=== PATIENT | female | born 1970 | race Caucasian/White ===

== ENCOUNTER → 2017-03-18 | Outpatient (CLI) | payer OTHER, BC ==
[2017-03-18 13:01] LABS: BASOPHILS # (AUTO) 0.08 10*3/UL; BASOPHILS % (AUTO) 0.8 % (0-1); EOSINOPHILS # (AUTO) 0.54 10*3/UL; EOSINOPHILS % (AUTO) 5.2 % (0-8); HEMATOCRIT 46.1 % (37.0-47.0); LYMPHOCYTES # (AUTO) 2.63 10*3/uL; MEAN CORPUSCULAR HEMOGLOBIN 29.5 PG (27-31); MEAN CORPUSCULAR HGB CONC 32.5 g/dL (33-37); MEAN CORPUSCULAR VOLUME 90.7 FL (81-99); MEAN PLATELET VOLUME 10.9 FL (7.4-12.2); MONOCYTES # (AUTO) 0.69 10*3/UL (0.3-0.8); MONOCYTES % (AUTO) 6.6 % (5-15); NEUTROPHILS # (AUTO) 6.27 10*3/UL; NEUTROPHILS % (AUTO) 60.2 % (50-80); RED BLOOD COUNT 5.08 10^6/uL (4.20-5.40)
[2017-03-18 13:03] LABS: PLATELET MORPHOLOGY COMMENT NORMAL MORPHOLOGY (NORM); RBC MORPHOLOGY COMMENT NORMAL MORPHOLOGY (NORM); WBC MORPHOLOGY COMMENT NORMAL MORPHOLOGY (NORM)
[2017-03-18 13:17] LABS: BLOOD UREA NITROGEN 9 mg/dL (7-22); BUN/CREATININE RATIO 12.85 (6-20); CALCIUM 8.8 mg/dL (8.7-10.7); CHOL/HDL RATIO 6.18 RATIO (0-4.0); EST GLOMERULAR FILTRATION > 60 (>60 ml/min/1.73m(2)); HDL CHOLESTEROL 33 mg/dL (40-150); SERUM ALBUMIN 3.9 g/dL (3.5-4.8); SERUM CHOLESTEROL 204 mg/dL (120-200)
[2017-03-18 13:18] LABS: HEMOGLOBIN A1C 9.22 % (4.2-6.0)
== END ==
LOC: LAB 12:46
PROVIDERS: ATTEND Internal Medicine
DX: E11.9 Type 2 diabetes mellitus without complications (principal); Z79.4 Long term (current) use of insulin; E78.4 Other hyperlipidemia; D50.9 Iron deficiency anemia, unspecified; E66.01 Morbid (severe) obesity due to excess calories; E03.4 Atrophy of thyroid (acquired); L40.50 Arthropathic psoriasis, unspecified; L73.2 Hidradenitis suppurativa; N92.0 Excessive and frequent menstruation with regular cycle; F17.200 Nicotine dependence, unspecified, uncomplicated
CPT/HCPCS: 36415; 80053; 80061; 82550; 83036; 84443; 85025

== ENCOUNTER 2017-10-17 17:39 | Inpatient (IN) ==
[2017-10-17] MEDS ORDERED: NORMAL SALINE 10 ML SYRINGE FLUSH IVP PRN (18:29)
[2017-10-17] MEDS ORDERED: Sodium Chloride 0.9% 1,000 ML PRIMARY IV ONE (18:29)
[2017-10-17] MEDS ORDERED: MORPHINE SULFATE 2 MG/1 ML ONE (18:55)
[2017-10-17] MEDS ORDERED: MORPHINE SULFATE 2 MG/1 ML IVP ONE (18:59)
[2017-10-17 19:04] LABS: RED BLOOD COUNT 5.02 10^6/uL (4.20-5.40)
[2017-10-17 19:05] LABS: BASOPHILS # (AUTO) 0.07 10*3/UL; BASOPHILS % (AUTO) 0.8 % (0-1); BLOOD UREA NITROGEN 10 mg/dL (7-22); EOSINOPHILS # (AUTO) 0.49 10*3/UL; EOSINOPHILS % (AUTO) 5.7 % (0-8); Hematocrit [HCT] 46.3 % (37.0-47.0); Hemoglobin [HGB] 15.9 g/dL (12.0-16.0); LYMPHOCYTES # (AUTO) 2.21 10*3/uL; MEAN CORPUSCULAR HEMOGLOBIN 31.6 PG (27-31); MEAN CORPUSCULAR HGB CONC 34.3 g/dL (33-37); MEAN CORPUSCULAR VOLUME 92 FL (81-99); MEAN PLATELET VOLUME 9.7 FL (7.4-12.2); MONOCYTES # (AUTO) 0.65 10*3/UL (0.3-0.8); MONOCYTES % (AUTO) 7.6 % (5-15); NEUTROPHILS # (AUTO) 5.18 10*3/UL; NEUTROPHILS % (AUTO) 60.2 % (50-80); RBC MORPHOLOGY COMMENT NORMAL MORPHOLOGY (NORM); WBC MORPHOLOGY COMMENT NORMAL MORPHOLOGY (NORM)
[2017-10-17 19:06] LABS: PLATELET MORPHOLOGY COMMENT SEE COMMENTS (NORM)
--- NOTE | 2017-10-17 20:35 | PDOC ---
HPI - History of Present Illness Date of Service: 10/17/17 Time of Service: 20:00 Chief Complaint: An ulcer that developed on the anterior upper left tian 2 weeks duration with discharge from it History of Present Illness: This is a 47 years old female with medical history significant for history of diabetes on insulin, psoriasis with psoriatic arthropathy, obstructive sleep apnea on CPAP, obesity, history of pseudotumor cerebri, hypothyroidism, history of Hidradenitis suppurativa who developed an ulcer with an eschar on the left lower leg. It started she said the 2 weeks ago, she thought that she had the lesion of hidradenitis that developed on a psoriatic palque also with discharge and drainage from it. The area is painful. No fever. She did notice some red streaking from the area radiating. Because she thought that it' s her usual hidradenitis she thought that it will take its course and go away so she was doing dressing changes. She had an appointment a regular appointment with Dr. England, he looked at the area he put her on antibiotics and did a CT of the leg there was no evidence of abscess collection so he put her on Levaquin. However he called her today because the growth showed MRSA and suggested that she goes to the hospital. She was seen in the ER she had blood test done and she was started on antibiotics with vancomycin and admitted. Past Medical History Medical History: 1. Bilateral PE in 2013. 2. Psoriasis. 3. Diabetes. 4. History of sleep apnea. 5. Obesity. 6. Dyslipidemia. 7. History of pseudotumor cerebri. 8. History of anxiety/depression. 9. History of Hidradenitis suppurativa Surgical History: 1. History of cholecystectomy. 2. History of endometrial ablation Family History: Reviewed an Not Pertinent Pertinent Family History: Apparently her father had MRSA infection and from to her. Past Social History: She smokes, rarely drinks no drugs. Lives in [place]. Tobacco Use: Current Every Day Smoker In the Past 12 Months, Have Used or Abuse Any of the Following Substance: None Alcohol Use: Rarely Medication / Allergies Home Medications: Home Medications Medication Instructions Recorded Confirmed Type Naproxen [Naprosyn] 1 tab PO QD PRN #60 tab 08/03/14 10/17/17 History Ibuprofen [Motrin] 800 mg PO Q6H PRN #40 tab 02/10/15 10/17/17 Rx Blood Sugar Diagnostic [Contour 1 ea QAM #90 strip 07/24/16 10/17/17 Rx Next] Bupropion HCl [Wellbutrin Xl] 1 tab PO DAILY #30 tab 07/24/16 10/17/17 Rx Citalopram Hydrobromide 1 tab PO QAM #30 tab 07/24/16 10/17/17 Rx [Citalopram Hbr] Cyclobenzaprine HCl 1 tab PO TID PRN #60 tab 07/24/16 10/17/17 History Ezetimibe [Zetia] 1 tab PO QD #30 tab 07/24/16 10/17/17 Rx Folic Acid 1 tab PO DAILY #90 tab 07/24/16 10/17/17 Rx Furosemide 1 tab PO DAILY #30 tab 07/24/16 10/17/17 History Potassium Chloride 1 tab PO DAILY #30 tab 07/24/16 10/17/17 History Rosuvastatin Calcium [Crestor] 1 tab PO QHS #30 tab 07/24/16 10/17/17 Rx Silver Sulfadiazine 50 gm TP BID #1 tub 07/24/16 10/17/17 Rx AcetaZOLAMIDE [Diamox] 500 mg PO BID #120 tab 07/30/16 10/17/17 Rx Apixaban [Eliquis] 1 tab PO BID #60 tab 08/31/16 10/17/17 Rx Allopurinol 1 tab PO 3x weekly #30 tab 10/03/16 10/17/17 Rx Insulin Detemir [Levemir Flextouch] 60 unit SQ QHS #3 unit 10/03/16 10/17/17 Rx Levothyroxine Sodium 1 tab PO DAILY #30 tab 10/03/16 10/17/17 Rx Methotrexate Sodium/Pf 25 mg IM WEEKLY #1 bottle 10/03/16 10/17/17 Rx [Methotrexate 1 Gram/40 Ml Vial] [place] Tar [Mg217 Psoriasis] 107 gm TOPICAL DAILY tube 03/18/17 10/17/17 History Metformin HCl 1 tab PO BID #180 tab 03/18/17 10/17/17 Rx oxycodone 10 mg tablet 10 mg PO Q4-6H PRN #30 tab 07/10/17 10/17/17 Rx levofloxacin 750 mg tablet 750 mg PO Q24H 7 Days #7 tab 10/15/17 10/17/17 Rx Allergies/Adverse Reactions: Allergies 3 Allergy/AdvReac Type Severity Reaction Status Date / Time amoxicillin Allergy Mild RASH Verified 10/17/17 17:48 cephalexin [Cephalexin] Allergy Mild RASH Verified 10/17/17 17:48 Egg Derived [Egg/Poultry] Allergy Mild OTHER Verified 10/17/17 17:48 minocycline Allergy Mild RASH Verified 10/17/17 17:48 Penicillins Allergy Mild RASH Verified 10/17/17 17:48 Tetracyclines Allergy Mild OTHER Verified 10/17/17 17:48 tretinoin Allergy Mild RASH Verified 10/17/17 17:48 vitamin A [From Retinol] Allergy NOT Verified 10/17/17 17:48 APPLICABLE Review of Systems - Review of Systems All Systems: Reviewed & No Additional Complaints Except as Stated Exam - General General Appearance: No Acute Distress, Cooperative, Obese - Head Head Exam: Normal Inspection, Atraumatic - Eye Eye Exam: POSITIVE: Normal Appearance - ENT ENT Exam: POSITIVE: Normal Exam - Neck Neck Exam: Normal Inspection - Respiratory Respiratory Exam: POSITIVE: Clear to Auscultation - Bilaterally - Cardiovascular Cardiovascular Exam: POSITIVE: RRR - GI/Abdominal GI/Abdominal Exam: POSITIVE: Normal Bowel Sounds, Non Tender, Non Distended, Soft, No Organomegaly - Rectal Rectal Exam: POSITIVE: Deferred - External Exam: POSITIVE: Deferred - Extremities Additional Extremities Exam Details: There is an ulcer on the anterior tibial tian some mike-evidence noted and eschar noted on the lateral aspect of it. There is some streaking around the we also the area is tender I don't think there is fluctuation. - Back Back Exam: POSITIVE: Normal Inspection - Neurological Neurological Exam: POSITIVE: Alert, Oriented x 3, CN II-XII Intact, Speech Intact / Clear, Moves All Extremities Equally - Psychiatric Psychiatric Exam: POSITIVE: Normal Affect Results - Labs CBC and BMP: 10/17/17 18:43 10/17/17 18:43 - Imaging Status: Report Reviewed by Me (CT of the lower extremity done on the showed Diffuse edema of the left lower extremity without any general fluid collection.) Assessment and Plan - Patient Problems (1) Ulcer of left lower leg Current Visit: Yes Status: Acute Comment: There is some surrounding erythema may be some cellulitis so we'll continue antibiotics with vancomycin. Will ask PT for dressing changes. May discuss with surgery and infectious disease also. Code(s): L97.929 - Non-pressure chronic ulcer of unspecified part of left lower leg with unspecified severity (2) Type II diabetes mellitus Current Visit: No Status: Acute Onset Date: 02/11/15 Comment: Continue the previous medication but will put her also on sliding scale as blood sugar is uncontrolled. Code(s): E11.9 - Type 2 diabetes mellitus without complications Qualifiers: Diabetes mellitus complication status: without complication (3) History of pulmonary embolism Current Visit: Yes Status: Acute Comment: She is on eliquis will continue Code(s): Z86.711 - Personal history of pulmonary embolism (4) Pseudotumor cerebri Current Visit: No Status: Acute Onset Date: 11/23/13 Comment: Continue Diamox Code(s): G93.2 - Benign intracranial hypertension (5) Hypothyroidism Current Visit: Yes Status: Acute Comment: Continue previous medication Code(s): E03.9 - Hypothyroidism, unspecified
[2017-10-17] MEDS ORDERED: Naproxen Tab 500 MG TAB PO PRN (21:48)
[2017-10-17] MEDS ORDERED: ROSUVASTATIN CALCIUM PO SCH (22:00)
[2017-10-17] MEDS ORDERED: ACETAMINOPHEN 325 MG TABLET PO PRN (22:10)
[2017-10-17] MEDS ORDERED: LIDOCAINE W/ SODIUM BICARB 0.5 ML SYR SUBD PRN (22:10)
[2017-10-17] MEDS ORDERED: CALCIUM CARBONATE 500 MG (TUMS) CHEWABLE TABLET PO PRN (22:10)
[2017-10-17] MEDS ORDERED: ONDANSETRON 4 MG/2 ML VIAL IVP PRN (22:10)
[2017-10-17] MEDS ORDERED: DOCUSATE 100 MG CAPSULE PO PRN (22:10)
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
[2017-10-17] MEDS: Rosuvastatin Tab 20 MG TAB PO SCH (23:09)
[2017-10-17] MEDS: oxyCODONE/APAP 10/325 Tab 1 EACH TAB PO PRN (23:10)
[2017-10-17] MEDS: AcetaZOLAMIDE Tab 250 MG TABLET PO SCH (23:10)
[2017-10-17] MEDS: EZETIMIBE 10 MG TABLET PO SCH (23:10)
[2017-10-17] MEDS: Apixaban 5 MG TABLET PO SCH (23:11)
[2017-10-17] MEDS: Insulin Detemir 300unit/3ml Flexpen SUBCUT SCH (23:11)
[2017-10-17] MEDS: NORMAL SALINE 10 ML SYRINGE FLUSH IVP PRN (23:12)
[2017-10-17] MEDS: MORPHINE SULFATE 2 MG/1 ML IVP PRN (23:12)
[2017-10-18] MEDS ORDERED: LEVOTHYROXINE 100 MCG TABLET PO SCH (05:30)
[2017-10-18] MEDS ORDERED: Vancomycin-PHA to Dose IV PRN (06:00)
[2017-10-18] MEDS: POTASSIUM CHLORIDE 20 MEQ TAB PO SCH (07:07)
[2017-10-18] MEDS: FUROSEMIDE 40 MG TABLET PO SCH (07:07)
[2017-10-18] MEDS: Insulin Lispro Flexpen 300 UNIT/3 ML INSULN.PEN SUBCUT SCH ×3 (07:37→16:47)
[2017-10-18] MEDS: NORMAL SALINE 10 ML SYRINGE FLUSH IVP PRN (07:40)
[2017-10-18] MEDS: ALLOPURINOL 100 MG TABLET PO SCH (08:16)
[2017-10-18] MEDS: AcetaZOLAMIDE Tab 250 MG TABLET PO SCH ×2 (08:16→21:11)
[2017-10-18] MEDS: buPROPion XL Tab 150 MG TAB PO SCH (08:16)
[2017-10-18] MEDS: Apixaban 5 MG TABLET PO SCH ×2 (08:16→21:11)
[2017-10-18] MEDS: oxyCODONE/APAP 10/325 Tab 1 EACH TAB PO PRN (08:17)
[2017-10-18] MEDS: CITALOPRAM 20 MG TABLET PO SCH (08:17)
[2017-10-18] MEDS: EZETIMIBE 10 MG TABLET PO SCH (08:17)
[2017-10-18] MEDS: metFORMIN 500 MG TABLET PO SCH ×2 (08:17→21:10)
[2017-10-18] MEDS ORDERED: metFORMIN 500 MG TABLET PO SCH (09:00)
[2017-10-18] MEDS ORDERED: BUPROPION HCL PO SCH (09:00)
[2017-10-18] MEDS ORDERED: LEVOTHYROXINE SODIUM PO SCH (09:00)
[2017-10-18] MEDS ORDERED: CITALOPRAM 20 MG TABLET PO SCH (09:00)
[2017-10-18] MEDS: MORPHINE SULFATE 2 MG/1 ML IVP PRN ×2 (09:09→19:26)
[2017-10-18] MEDS ORDERED: LIDOCAINE W/ SODIUM BICARB 0.5 ML SYR ONE (11:09)
--- NOTE | 2017-10-18 13:28 | PDOC(PROG) ---
Date and Time of Service: 10/18/2017 1:22 PM Interval History: Subjective She was complaining from pain in her arm because of the IV antibiotics. She said she did have pain yesterday but she got the pain medication earlier. She can't tell me about the severity of the pain in the leg because of the distraction that she is having from the pain in her arm. Objective : Data - Labs CBC and BMP: 10/17/17 18:43 10/17/17 18:43 Objective : Exam - General General Appearance: No Acute Distress, Cooperative, Obese - Head Head Exam: Normal Inspection, Atraumatic - Eye Eye Exam: Normal Appearance - ENT ENT Exam: Normal Exam - Neck Neck Exam: Normal Inspection - Respiratory Respiratory Exam: Clear to Auscultation - Bilaterally - Cardiovascular Cardiovascular Exam: RRR - GI/Abdominal GI/Abdominal Exam: Normal Bowel Sounds, Non Tender, Non Distended, Soft, No Organomegaly - Rectal Rectal Exam: Deferred - External Exam: Deferred - Extremities Additional Extremities Exam Details: There is an ulcer still in the same position like yesterday slight area of cellulitis around it. - Back Back Exam: Normal Inspection - Neurological Neurological Exam: Alert, Oriented x 3, Speech Intact / Clear, Moves All Extremities Equally - Psychiatric Psychiatric Exam: Anxious Assessment and Plan - Patient Problems (1) Ulcer of left lower leg Current Visit: Yes Status: Acute Comment: Dressing changes were applied today by the physical therapy. Continue current antibiotics. Spoke with surgery suggested to continue the same plan Code(s): L97.929 - Non-pressure chronic ulcer of unspecified part of left lower leg with unspecified severity (2) Type II diabetes mellitus Current Visit: No Status: Acute Onset Date: 02/11/15 Comment: Same med. Watch her blood sugar during the day and see whether we need to adjust the sliding scale. Code(s): E11.9 - Type 2 diabetes mellitus without complications Qualifiers: Diabetes mellitus complication status: without complication (3) History of pulmonary embolism Current Visit: Yes Status: Acute Comment: Continue liquids Code(s): Z86.711 - Personal history of pulmonary embolism (4) Pseudotumor cerebri Current Visit: No Status: Acute Onset Date: 11/23/13 Comment: Continue Diamox Code(s): G93.2 - Benign intracranial hypertension (5) Hypothyroidism Current Visit: Yes Status: Acute Comment: Same med Code(s): E03.9 - Hypothyroidism, unspecified
[2017-10-18] MEDS ORDERED: Sodium Chloride 0.9% 50 ML ONE (19:26)
[2017-10-18] MEDS ORDERED: Rosuvastatin Tab 20 MG TAB PO SCH (21:00)
[2017-10-18] MEDS: Insulin Detemir 300unit/3ml Flexpen SUBCUT SCH (21:10)
[2017-10-18] MEDS: Rosuvastatin Tab 20 MG TAB PO SCH (21:11)
[2017-10-19 06:02] LABS: BLOOD UREA NITROGEN 11 mg/dL (7-22); BUN/CREATININE RATIO 12.22 (6-20)
[2017-10-19] MEDS: Insulin Lispro Flexpen 300 UNIT/3 ML INSULN.PEN SUBCUT SCH ×3 (06:50→17:35)
[2017-10-19] MEDS: MORPHINE SULFATE 2 MG/1 ML IVP PRN ×2 (07:35→21:50)
[2017-10-19] MEDS: POTASSIUM CHLORIDE 20 MEQ TAB PO SCH (07:46)
[2017-10-19] MEDS: FUROSEMIDE 40 MG TABLET PO SCH (07:46)
[2017-10-19] MEDS: buPROPion XL Tab 150 MG TAB PO SCH (09:13)
[2017-10-19] MEDS: CITALOPRAM 20 MG TABLET PO SCH (09:13)
[2017-10-19] MEDS: AcetaZOLAMIDE Tab 250 MG TABLET PO SCH ×2 (09:13→20:22)
[2017-10-19] MEDS: metFORMIN 500 MG TABLET PO SCH ×2 (09:13→20:21)
[2017-10-19] MEDS: Apixaban 5 MG TABLET PO SCH ×2 (09:14→20:21)
[2017-10-19] MEDS: EZETIMIBE 10 MG TABLET PO SCH (09:14)
--- NOTE | 2017-10-19 09:33 | PDOC(PROG) ---
Date and Time of Service: 10/19/2017 9:31 AM Interval History: Subjective Feels better compared to yesterday. Pain is controlled. She thinks the area looks better than what it was before. Objective : Data - Labs CBC and BMP: 10/17/17 18:43 10/19/17 05:31 Objective : Exam - General General Appearance: No Acute Distress, Cooperative, Obese - Head Head Exam: Normal Inspection, Atraumatic - Eye Eye Exam: Normal Appearance - ENT ENT Exam: Normal Exam - Neck Neck Exam: Normal Inspection - Respiratory Respiratory Exam: Clear to Auscultation - Bilaterally - Cardiovascular Cardiovascular Exam: RRR - GI/Abdominal GI/Abdominal Exam: Normal Bowel Sounds, Non Tender, Non Distended, Soft, No Organomegaly - Rectal Rectal Exam: Deferred - External Exam: Deferred Exam: Deferred - Extremities Additional Extremities Exam Details: The area of erythema around the ulcer seems to be improving there is minimal erythema now. The ulcer base seems to be improving with the dressing change. - Back Back Exam: Normal Inspection - Neurological Neurological Exam: Alert, Oriented x 3, CN II-XII Intact, Moves All Extremities Equally - Psychiatric Psychiatric Exam: Normal Affect Assessment and Plan - Patient Problems (1) Ulcer of left lower leg Current Visit: Yes Status: Acute Comment: Continue current IV antibiotics. I spoke with infectious disease recommended 7-10 days of IV antibiotics. I think once we have a radiologist on Saturday may think about putting up a PICC line and treat her as an outpatient versus continue the course here . Code(s): L97.929 - Non-pressure chronic ulcer of unspecified part of left lower leg with unspecified severity (2) Type II diabetes mellitus Current Visit: No Status: Acute Onset Date: 02/11/15 Comment: Same medications Code(s): E11.9 - Type 2 diabetes mellitus without complications Qualifiers: Diabetes mellitus complication status: without complication (3) History of pulmonary embolism Current Visit: Yes Status: Acute Comment: Continue eliquis Code(s): Z86.711 - Personal history of pulmonary embolism (4) Pseudotumor cerebri Current Visit: No Status: Acute Onset Date: 11/23/13 Comment: Same med Code(s): G93.2 - Benign intracranial hypertension (5) Hypothyroidism Current Visit: Yes Status: Acute Comment: Same med Code(s): E03.9 - Hypothyroidism, unspecified
[2017-10-19] MEDS: Insulin Detemir 300unit/3ml Flexpen SUBCUT SCH (20:20)
[2017-10-19] MEDS: Rosuvastatin Tab 20 MG TAB PO SCH (20:21)
[2017-10-19] MEDS ORDERED: Sodium Chloride 0.9% 50 ML ONE (21:31)
[2017-10-20] MEDS: oxyCODONE/APAP 10/325 Tab 1 EACH TAB PO PRN (00:09)
[2017-10-20] MEDS: Insulin Lispro Flexpen 300 UNIT/3 ML INSULN.PEN SUBCUT SCH ×3 (07:35→16:23)
[2017-10-20] MEDS: POTASSIUM CHLORIDE 20 MEQ TAB PO SCH (07:50)
[2017-10-20] MEDS: FUROSEMIDE 40 MG TABLET PO SCH (07:50)
[2017-10-20] MEDS: CITALOPRAM 20 MG TABLET PO SCH (08:34)
[2017-10-20] MEDS: Apixaban 5 MG TABLET PO SCH ×2 (08:34→21:08)
[2017-10-20] MEDS: buPROPion XL Tab 150 MG TAB PO SCH (08:34)
[2017-10-20] MEDS: EZETIMIBE 10 MG TABLET PO SCH (08:34)
[2017-10-20] MEDS: metFORMIN 500 MG TABLET PO SCH ×2 (08:34→21:07)
[2017-10-20] MEDS: AcetaZOLAMIDE Tab 250 MG TABLET PO SCH ×2 (08:35→21:07)
[2017-10-20] MEDS: MORPHINE SULFATE 2 MG/1 ML IVP PRN ×2 (10:28→22:17)
--- NOTE | 2017-10-20 14:39 | PDOC(PROG) ---
Interval History: Patient is doing well has no complaints her wound dressing is slipped down a little bit and we will refix this Objective : Data - Labs CBC and BMP: 10/17/17 18:43 10/19/17 05:31 Objective : Exam - General General Appearance: Cooperative - Respiratory Respiratory Exam: Clear to Auscultation - Bilaterally, Breathing Non Labored, Normal To Percussion, Normal to Percussion and Palpation - Cardiovascular Cardiovascular Exam: RRR, No Murmur, No Clicks, No Gallops, No Rubs, PMI Non- Displaced - GI/Abdominal GI/Abdominal Exam: Normal Bowel Sounds, Non Tender, Non Distended, Soft, No Masses, No Hepatomegaly, No Splenomegaly, No Organomegaly - Additional Exam Details: Left tian skin infection with wound dressing Assessment and Plan - Patient Problems (1) Ulcer of left lower leg Current Visit: Yes Status: Acute Comment: Continue IV antibiotics 7-10 days recommendations from infectious disease Code(s): L97.929 - Non-pressure chronic ulcer of unspecified part of left lower leg with unspecified severity (2) Type II diabetes mellitus Current Visit: No Status: Acute Onset Date: 02/11/15 Comment: Continue current meds Code(s): E11.9 - Type 2 diabetes mellitus without complications Qualifiers: Diabetes mellitus complication status: without complication (3) Pseudotumor cerebri Current Visit: No Status: Acute Onset Date: 11/23/13 Comment: Stable Code(s): G93.2 - Benign intracranial hypertension (4) History of pulmonary embolism Current Visit: Yes Status: Acute Code(s): Z86.711 - Personal history of pulmonary embolism (5) Hypothyroidism Current Visit: Yes Status: Acute Comment: Continue replacement Code(s): E03.9 - Hypothyroidism, unspecified
[2017-10-20] MEDS ORDERED: HEPARIN 500 UNIT/5 ML SYRINGE FOR CENTRAL LINE IVP PRN (14:41)
[2017-10-20] MEDS ORDERED: Lidocaine 1% 10 MG/ML - 20 ML VIAL SUBCUT PRN (14:41)
[2017-10-20] MEDS ORDERED: LIDOCAINE 2% 20 MG/ML - 20 ML VIAL SUBCUT PRN (14:41)
[2017-10-20] MEDS ORDERED: NORMAL SALINE 10 ML SYRINGE FLUSH IV PRN (14:41)
[2017-10-20] MEDS: Rosuvastatin Tab 20 MG TAB PO SCH (21:07)
[2017-10-20] MEDS: Insulin Detemir 300unit/3ml Flexpen SUBCUT SCH (21:08)
[2017-10-20] MEDS ORDERED: Sodium Chloride 0.9% 50 ML ONE (21:58)
[2017-10-21 07:23] VITALS: O2SAT 91
[2017-10-21] MEDS: Insulin Lispro Flexpen 300 UNIT/3 ML INSULN.PEN SUBCUT SCH ×2 (07:38→12:15)
[2017-10-21] MEDS: FUROSEMIDE 40 MG TABLET PO SCH (07:41)
[2017-10-21] MEDS: POTASSIUM CHLORIDE 20 MEQ TAB PO SCH (07:41)
[2017-10-21] MEDS: EZETIMIBE 10 MG TABLET PO SCH (09:25)
[2017-10-21] MEDS: AcetaZOLAMIDE Tab 250 MG TABLET PO SCH (09:25)
[2017-10-21] MEDS: metFORMIN 500 MG TABLET PO SCH (09:25)
[2017-10-21] MEDS: buPROPion XL Tab 150 MG TAB PO SCH (09:25)
[2017-10-21] MEDS: ALLOPURINOL 100 MG TABLET PO SCH (09:25)
[2017-10-21] MEDS: CITALOPRAM 20 MG TABLET PO SCH (09:25)
[2017-10-21] MEDS: MORPHINE SULFATE 2 MG/1 ML IVP PRN (10:23)
[2017-10-21] MEDS: NORMAL SALINE 10 ML SYRINGE FLUSH IVP PRN (10:24)
[2017-10-21] MEDS ORDERED: LIDOCAINE W/ SODIUM BICARB 0.5 ML SYR ONE (10:36)
--- NOTE | 2017-10-21 11:02 | PTI REPORT ---
Thank you for the referral of Kristin Latif. She was seen on 10/18/17 for an inpatient evaluation secondary to a left lower leg anterior wound. SUBJECTIVE: The patient is a 47-year-old female. The patient reports she lives in [place] and cares for her elderly mother. The patient reports she has been in and out of hospitals with her mom for five months and feels that that is how she has contracted MRSA in her wound. She states she always has pain in the wound; however, she is unable to rate her specific wound pain at this time due to receiving Vancomycin via IV in her arm and is in excruciating pain which she rates as a 9.5/10 on the verbal analog scale (0=no pain, 10=worst pain). She states that she has a lot of secondary health problems that she is aware of and is on a whole list of medications. PAST MEDICAL HISTORY: Past medical history can be found in the patient's medical record. OBJECTIVE FINDINGS: The patient presents with an open wound on the left anterior leg that measures 3.5 centimeters long x 3.9 centimeters wide with unknown depth at this time due to the wound presenting with 50% slough tissue. There is crusting and discoloration noted on the inferior half of the wound, extending down approximately 6 centimeters. The superior edges of the wound appear normal and appropriate. ASSESSMENT: Problem List: Open wound with active infection Physical Therapy Goals: To be met by discharge from inpatient: Patient will promote clean wound healing. Patient will decrease wound size by 10-25%. TREATMENT PLAN: Patient will be seen per wound presentation. At this time daily dressing changes are recommended with Medihoney Alginate with a secondary dressing. INITIAL TREATMENT: Treatment today consisted of the initial evaluation followed by cleansing the area with wound cleanser and placing Medihoney Alginate as provided by the PT department cut to the size of the wound with the edges covered with Calamine lotion to prevent maceration. It was covered with 4X4, Kerlix, and Coban. [facility]
[2017-10-21] MEDS: Apixaban 5 MG TABLET PO SCH (12:12)
[2017-10-21] MEDS ORDERED: DOXYCYCLINE HYCLATE 100 MG CAPSULE PO ONE (12:15)
--- NOTE | 2017-10-21 13:07 | DCSUMMARY ---
Hospitalization Summary Hospital Course: Final Discharge Diagnosis: Current Visit Problems Problem Status Onset Code Ulcer of left lower leg Acute L97.929 History of pulmonary embolism Acute Z86.711 Hypothyroidism Acute E03.9 Wound Acute T14.90XA Diagnostic Data, Laboratory Data, and Procedures of Signifigance: History and Physical pertinent to Admission: Past Medical History Medical History: 1. Bilateral PE in 2014. 2. Psoriasis. 3. Diabetes. 4. History of sleep apnea. 5. Obesity. 6. Dyslipidemia. 7. History of pseudotumor cerebri. 8. History of anxiety/depression. 9. History of Hidradenitis suppurativa Surgical History: 1. History of cholecystectomy. 2. History of endometrial ablation Family History: Reviewed an Not Pertinent Pertinent Family History: Apparently her father had MRSA infection and from to her. Past Social History: She smokes, rarely drinks no drugs. Lives in [place]. Tobacco Use: Current Every Day Smoker Course of Hospitalization: This very nice 47-year-old female with past medical history significant for diabetes, psoriasis with psoriatic arthropathy, obstructive sleep apnea on CPAP , obesity history of pseudotumor cerebri, hypothyroidism and history of hidradenitis protein. Comes to the ER because she developed the psoriatic plaque and eschar on the left lower tian area with the purulent discharge she did see her primary care physician there was no evidence of abscess collection on CT scan she was put on Levaquin but the culture shows MRSA and she was advised to be admitted to the hospital she received the a few days of vancomycin which improved her wound with continuous wound care patient is systemically stable vitals are stable we have not been able to put in any lines and we tried 6 times also we don't have any PICC line that capability at this time I discussed the case with infectious disease Dr. Mccarthy which suggested the in this case to give her doxycycline 100 mg by mouth twice a day for 7 more days I did discuss this with the patient which agreed she did take her first pill and apparently she is tolerating it well we will give her a prescription and set her up for wound changes in [place] On the date of discharge, the patient was examined: Gen.: No acute distress, alert, nontoxic Heart: Regular rate and rhythm, no murmurs, clicks, gallops, or rubs Lungs: Clear to auscultation bilaterally, breathing is nonlabored Abdomen/GI: Normal tones on auscultation, soft, nontender, nondistended Musculoskeletal/extremities: No clubbing, cyanosis, or edema wound looks improved I was there with the physical therapist to change the dressing this is the first that I see it but the patient said it's more pink there's less fluid secretions Vitals reviewed and are listed below Vital Signs (24 hrs) Temp Pulse Pulse Resp BP BP Pulse Ox 10/21/17 07:46 70 10/21/17 07:22 97.3 F 68 16 141/86 91 10/21/17 04:52 94 10/21/17 04:35 98.2 F 67 18 138/80 93 10/20/17 20:33 97.4 F 67 16 157/85 91 10/20/17 16:21 97.4 F 63 18 146/85 90 Assessment and Plan: 1. As per discharge assessments above 2. Disposition: Home 3. Condition on discharge, stable and improved. 4. Diet: regular diet 5. Activities: resume normal activities 6. Follow-Up: 1. PCP Dr peace in infectious disease needed 2. 7. Medications at the Time of Discharge: Home Medications Medication Instructions Recorded Confirmed Type Bupropion HCl [Wellbutrin Xl] 1 tab PO DAILY #30 tab 07/24/16 10/17/17 Rx Cyclobenzaprine HCl 1 tab PO TID PRN #60 tab 07/24/16 10/17/17 History Ezetimibe [Zetia] 1 tab PO QD #30 tab 07/24/16 10/17/17 Rx Furosemide 1 tab PO DAILY #30 tab 07/24/16 10/17/17 History Potassium Chloride 1 tab PO DAILY #30 tab 07/24/16 10/17/17 History Rosuvastatin Calcium [Crestor] 1 tab PO QHS #30 tab 07/24/16 10/17/17 Rx AcetaZOLAMIDE [Diamox] 500 mg PO BID #120 tab 07/30/16 10/17/17 Rx Apixaban [Eliquis] 1 tab PO BID #60 tab 08/31/16 10/17/17 Rx Insulin Detemir [Levemir Flextouch] 60 unit SQ QHS #3 unit 10/03/16 10/17/17 Rx Levothyroxine Sodium 1 tab PO DAILY #30 tab 10/03/16 10/17/17 Rx Methotrexate Sodium/Pf 25 mg IM WEEKLY #1 bottle 10/03/16 10/17/17 Rx [Methotrexate 1 Gram/40 ml Vial] oxycodone 10 mg tablet 10 mg PO Q4-6H PRN #30 tab 07/10/17 10/17/17 Rx Allopurinol [Zyloprim] 100 mg PO MoWeFr tab 10/21/17 Rx Citalopram HBr [Celexa] 40 mg PO DAILY tab 10/21/17 Rx Doxycycline Hyclate [Morgidox] 100 mg PO Q12H #14 cap 10/21/17 Rx Insulin Detemir Flexpen Inj 60 unit SUBCUT BEDTIME insuln.pen 10/21/17 Rx [Levemir Flexpen Inj] Insulin Lispro Flexpen Inj 0 - 14 unit SUBCUT AC insuln.pen 10/21/17 Rx [HumaLOG Flexpen Inj] metFORMIN Tab [Glucophage Tab] 1,000 mg PO BID tab 10/21/17 Rx 8. Time, care, counseling and coordination of care for this discharge is greater than 30 minutes. Exam - Vitals Vital Signs: Vital Signs Temperature 97.3 F Temperature Source Temporal Artery Scan Pulse Rate [Apical] 70 Pulse Rate [Pulse Oximeter 68 Right] Respiratory Rate 16 Blood Pressure [Left Radial 141/86 Artery] Blood Pressure [Right Radial 157/85 Artery] Pulse Ox 91 Oxygen Flow Rate 2 Oxygen Delivery Method Room Air Height 5 ft 5 in Weight 298 lb 6.4 oz Patient Problems - Patient Problem List (1) Ulcer of left lower leg Current Visit: Yes Status: Acute Code(s): L97.929 - Non-pressure chronic ulcer of unspecified part of left lower leg with unspecified severity Category : Medical (2) Type II diabetes mellitus Current Visit: No Status: Acute Onset Date: 02/11/15 Code(s): E11.9 - Type 2 diabetes mellitus without complications Qualifiers: Diabetes mellitus complication status: without complication Category: Medical (3) Pseudotumor cerebri Current Visit: No Status: Acute Onset Date: 11/23/13 Code(s): G93.2 - Benign intracranial hypertension Category: Medical (4) History of pulmonary embolism Current Visit: Yes Status: Acute Code(s): Z86.711 - Personal history of pulmonary embolism Category: Medical (5) Hypothyroidism Current Visit: Yes Status: Acute Code(s): E03.9 - Hypothyroidism, unspecified Category: Medical
[2017-10-21 13:42] VITALS: BP 133/71; RESP 18; TEMP 97.7
--- NOTE | 2017-10-21 14:16 | PT AM DAY ---
Diagnosis : Left Lower Leg Anterior Wound AM - Physical Therapy S: The patient is complaining that her wound is very painful and burning. She did have nursing take off her dressing because it was burning so bad. O: The patient received wound care in the form of the wound being cleansed with wound cleanser followed by some debridement. The wound was redressed with Calcium Alginate, Medihoney, Kerlix, and Coban. A: At this time the patient has approximately 25% good granulation tissue and full bleeding in the wound bed. The rest of it is still necrotic tissue that is difficult to get off. P: Continue seeing patient BID during the week and one time per day over the weekend per plan of care. BOO
--- NOTE | 2017-10-21 15:31 | PT AM DAY ---
Diagnosis : Left Lower Leg Anterior Wound AM - Physical Therapy S: The patient is complaining of her leg burning. She just got out of the shower and states the pain is worse today than it was yesterday. O: Treatment today consisted of removing the old dressing which was completely saturated from the patient's shower. Approximately 75% of the wound bed is necrotic tissue and the rest is granulating. The area was cleansed with wound cleanser and Lidocaine was applied to help the burning pain. The wound was redressed with Medihoney, Calcium Alginate, Kerlix, and Coban. A: The patient is functionally independent; however, her wound is still very necrotic and needs to continue to be autolytically debrided. The very tough, necrotic tissue is hard to debride out. P: Continue seeing patient BID during the week and one time per day over the weekend per plan of care. BOO
--- NOTE | 2017-10-22 10:09 | PT AM DAY ---
Diagnosis : Left Lower Leg Anterior Wound AM - Physical Therapy S: The patient states her leg is hurting. O: The patient's dressing was changed with Medihoney, Calamine lotion, Kerlix, and Coban. A: The patient's wound appeared more granulated with new tissue growth noted. Sarah skin was intact. Red and scaly tissue was noted on the inferior aspect as well as serosanguineous drainage. P: Patient will be discharged and will be seen for outpatient therapy in [place]. BOO
== END 2017-10-21 16:02 | disposition home or self-care (01) | DRG 594 ==
LOC: ER 17:39 → MED/SURG 19:35
PROVIDERS: ADMIT Internal Medicine; ATTEND Internal Medicine